=== PATIENT | female | born 1950 | race Hispanic/Latino ===

== ENCOUNTER 2017-08-10 14:49 | Emergency (ER) | payer OTHER, BC ==
[2017-08-10 15:11] VITALS: BP 126/68; PULSE 69; RESP 18; TEMP 98.3; O2SAT 99
--- NOTE | 2017-08-10 15:39 | ED PDOC ---
Upper Extremity Pain/Injury Time Seen by Provider: 08/10/17 15:11 Chief Complaint (Nursing): Upper Extremity Problem/Injury Chief Complaint (Provider): Right thumb pain History Per: Patient History/Exam Limitations: no limitations Additional Complaint(s): 66 year old female presents to the emergency department with an atraumatic pain to the right thumb radiating to the rigth wrist since 08/06/2017. 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 She had trouble holding onto the brush this morning. Denies blunt trauma, numbness or tingling. Past Medical History Reviewed: Historical Data, Nursing Documentation, Vital Signs Vital Signs: Last Vital Signs Temp 98.3 F 08/10/17 15:07 Pulse 69 08/10/17 15:07 Resp 18 08/10/17 15:07 BP 126/68 08/10/17 15:07 Pulse Ox 99 08/10/17 15:07 - Medical History PMH: No Chronic Diseases - Surgical History Surgical History: No Surg Hx - Family History Family History: States: Unknown Family Hx - Social History Current smoker - smoking cessation education provided: No Alcohol: None Drugs: Denies - Home Medications Home Medications: Ambulatory Orders Medication Instructions Recorded Naproxen [Naprosyn] 500 mg PO BID #20 tab 11/09/14 Meloxicam [Mobic] 7.5 mg PO DAILY PRN #14 tab 08/10/17 - Allergies Allergies/Adverse Reactions: Allergies Allergy/AdvReac Type Severity Reaction Status Date / Time No Known Allergies Allergy Verified 08/10/17 15:06 Review of Systems ROS Statement: Except As Marked, All Systems Reviewed And Found Negative (As per HPI, otherwise negative) Constitutional: Negative for: Other (blunt trauma) Neurological: Positive for: Numbness (or tingling) Physical Exam - Reviewed Nursing Documentation Reviewed: Yes Vital Signs Reviewed: Yes - Physical Exam Appears: Positive for: No Acute Distress Head Exam: Positive for: NORMAL INSPECTION Skin: Positive for: Normal Color, Warm, Dry Extremity: Positive for: Tenderness (No tenderness, swelling, warmth, deformity , erythema, thenar swellling, or snuffbox tenderness noted. ), Capillary Refill (Intact. <2 seconds refill. Radial pulses 2+. 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 --Hand immobilized in preformed thumb spica splint by [employer] geotechnical intern. Time: 1614 --Patient is medically stable for discharge. Given Rx for Mobic 7.5 mg. Advised to follow up with Dr. Anuj POWELL. Clinical Impression: Thumb pain Scribe Attestation: Documented by Liana Vernon, acting as a scribe for Kendrick Koch PA-C. Provider Scribe Attestation: All medical record entries made by the Scribe were at my direction and personally dictated by me. I have reviewed the chart and agree that the record accurately reflects my personal performance of the history, physical exam, medical decision making, and the department course for this patient. I have also personally directed, reviewed, and agree with the discharge instructions and disposition. Disposition - Clinical Impression Clinical Impression: Thumb pain - Patient ED Disposition Is Patient to be Admitted: No Counseled Patient/Family Regarding: Studies Performed, Diagnosis, Need For Followup, Rx Given - Disposition Referrals: Sophia Lamas [Outside] Deondre Leslie MD [Staff Provider] - Disposition: Routine/Home Disposition Time: 16:15 Condition: STABLE Additional Instructions: Follow up with Dr. Leslie (plastic surgeon) for further evaluation. Return to ED immediately if symptoms worsen. Prescriptions: Meloxicam [Mobic] 7.5 mg PO DAILY PRN #14 tab PRN Reason: Pain, Mild (1-3) Instructions: Muscle and Bone Pain (DC) Forms: [employer] (E[place]ian) Print Language: [place]
--- NOTE | 2017-08-10 16:04 | RAD ---
PROCEDURE: Right Hand Radiographs. HISTORY: pain COMPARISON: None. FINDINGS: BONES: No acute fracture or destructive bony lesion identified. JOINTS: Limited degenerative cortical sclerosis appreciate throughout the joints of the digits diffusely as well as the basal joint. SOFT TISSUES: Normal. OTHER FINDINGS: None. 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
== END 2017-08-10 16:05 | disposition home or self-care (01) ==
LOC: H.ER 14:49
DX: M79.644 Pain in right finger(s) (principal); M19.90 Unspecified osteoarthritis, unspecified site
CPT/HCPCS: 73130; 96372; 99283; J1885